=== PATIENT | male | born 1990 | race Caucasian/White ===

== ENCOUNTER 2017-11-12 21:30 | Inpatient (IN) | payer SELFPAY ==
[~2017-11-12] VITALS: Ht 182.9 cm; Wt 86.0 kg
[2017-11-12 22:01] LABS: BASO % 0.5 % (0.0-2.0); EOS # 0.1 (0.0-0.7); EOS % 1.6 % (0-4.0); GRAN # 5.1 (1.4-6.5); HEMATOCRIT 47.6 % (42.0-52.0); HEMOGLOBIN 16.5 g/dl (13.5-18.0); LYMPH # 1.7 (1.2-3.4); LYMPH % 22.7 % (20.0-51.0); MEAN CELL VOLUME 85 fl (80.0-100.0); MEAN CORPUSCULAR HEMOGLOBIN 29 pg (27.0-31.0); MEAN CORPUSCULAR HGB CONC 35 g/dl (33.0-37.0); MEAN PLATELET VOLUME 10.5 fl (7.4-10.4); MONO # 0.4 (0.1-0.6); MONO % 4.9 % (1.7-9.3); PLATELET COUNT 228 K/mm3 (130-400); RED BLOOD COUNT 5.63 M/mm3 (4.20-5.60); REDCELL DISTRIBUTION WIDTH-CV 11.9 % (11.5-14.5)
[2017-11-12 22:12] LABS: ALANINE AMINOTRANSFERASE 50 U/L (21-72); ALBUMIN 5.8 gm/dL (3.5-5.0); ALCOHOL(ethanol),MEDICAL 256 mg/dL; ALKALINE PHOSPHATASE 61 U/L (50-136); ANION GAP 19 mmol/L (7-16); AST,SGOT 24 U/L (15-37); BILIRUBIN,TOTAL 0.3 mg/dL (0.0-1.0); BLOOD UREA NITROGEN 10 mg/dL (9-20); CALCIUM 9.3 mg/dL (8.4-10.2); CARBON DIOXIDE 22 mmol/L (22-30); CHLORIDE 108 mmol/L (98-107); CREATININE, serum 1.02 mg/dL (0.66-1.25); GLUCOSE 115 mg/dL (74-106); LIPASE 317 U/L (23-300); MAGNESIUM 2.2 mg/dL (1.6-2.3); POTASSIUM 3.6 mmol/L (3.4-5.0); SODIUM 149 mmol/L (137-145); TOTAL PROTEIN 8.5 gm/dL (6.4-8.2)
[2017-11-12 22:13] LABS: ACETAMINOPHEN < 10 ug/mL (10-30); SALICYLATE < 1.0 mg/dL
[2017-11-12 22:28] LABS: PROLACTIN 56.6 ng/mL (3.7-17.9)
[2017-11-12 23:29] LABS: COLLECTION METHOD CLEAN CATCH
[2017-11-12 23:37] LABS: GRANULAR CAST >12 /lpf; MUCOUS Present /lpf; PH 5 (5-8); SQUAMOUS EPITHELIAL 0-2 /hpf; URINE APPEARANCE Clear; URINE BACTERIA None Seen /hpf; URINE BILIRUBIN Negative (NEGATIVE); URINE BLOOD Negative (NEGATIVE); URINE COLOR Yellow; URINE GLUCOSE Negative (NEGATIVE); URINE KETONE Trace (NEGATIVE); URINE LEUKOCYTE ESTERASE Negative (NEGATIVE); URINE NITRATE Negative (NEGATIVE); URINE PROTEIN(semi-quant) 2+ (NEGATIVE); URINE RBC 0-2 /hpf; URINE UROBILINOGEN Negative (NEGATIVE)
[2017-11-12 23:47] LABS: TRICYCLIC ANTIDEPRESS URINE NEGATIVE
[2017-11-13 01:07] VITALS: BP 125/81; PULSE 102; TEMP 99.2
[2017-11-13 04:17] VITALS: BP 100/58; PULSE 90; TEMP 98
[2017-11-13 08:00] VITALS: BP 130/72; PULSE 110; TEMP 98.6
[2017-11-13 12:00] VITALS: BP 129/79; PULSE 85; TEMP 98.8
== END 2017-11-13 17:59 | disposition home or self-care (01) | DRG 897 ==
LOC: COL.ER 21:30 → ICU 11-13 00:18
PROVIDERS: Emergency Medicine
DX: F10.129 Alcohol abuse with intoxication, unspecified (principal); F41.9 Anxiety disorder, unspecified; F17.210 Nicotine dependence, cigarettes, uncomplicated; Y90.8 Blood alcohol level of 240 mg/100 ml or more
CPT/HCPCS: 99223-AI; J7030